=== PATIENT | female | born 1995 ===

== ENCOUNTER 2018-09-10 12:05 | Emergency (ER) | payer OTHER ==
[~2018-09-10] VITALS: Ht 165.1 cm; Wt 77.6 kg
[2018-09-10] MEDS ORDERED: VISTARIL25 MG PO (15:29)
== END 2018-09-10 15:42 | disposition home or self-care (01) ==
LOC: ER 12:05
DX: R00.2 Palpitations (principal); F06.4 Anxiety disorder due to known physiological condition